=== PATIENT | male | born 1970 | race American Indian/Alaskan Native ===

== ENCOUNTER 2017-06-23 23:16 | Inpatient (IN) | payer OTHER ==
[2017-06-23] MEDS ORDERED: ASPIRIN PO ONE (23:55)
[2017-06-24 00:12] LABS: Basophils % (Auto) 0.1 % (0.0-1.8); Eosinophils % (Auto) 0.1 % (0.0-4.3); Hematocrit 46.8 % (35.5-45.6); Hemoglobin 15.8 gm/dl (11.8-15.2); Lymphocytes # (Auto) 2.5 K/mm3 (1.2-5.4); Lymphocytes % (Auto) 12.2 % (13.4-35.0); Mean Corpuscular HGB Conc 34 % (32-34); Mean Corpuscular Hemoglobin 30 pg (28-32); Mean Corpuscular Volume 87 fl (84-94); Monocytes # (Auto) 1.2 K/mm3 (0.0-0.8); Monocytes % (Auto) 5.9 % (0.0-7.3); Platelet Count 305 K/mm3 (140-440); Red Blood Count 5.37 M/mm3 (3.65-5.03); Red Cell Distribution Width 13.2 % (13.2-15.2)
[2017-06-24 00:25] LABS: Alanine Aminotransferase 35 units/L (7-56); Albumin 4.7 g/dL (3.9-5); BUN/Creatinine Ratio 9; Blood Urea Nitrogen 8 mg/dL (9-20); Calcium 9.7 mg/dL (8.4-10.2); Hemolysis Index 13
[2017-06-24 03:10] LABS: Bacteria,Urine 1+ /HPF (Negative); Bilirubin,Urine NEG (Negative); Blood,Urine NEG (Negative); Color,Urine Yellow (Yellow); Mucus,Urine 1+ /HPF; Protein,Urine <15 mg/dL mg/dL (Negative); Urobilinogen,Urine < 2.0 mg/dL (<2.0)
--- NOTE | 2017-06-24 04:39 | Cat Scan Report ---
FINAL REPORT EXAM: CT ABDOMEN PELVIS W CON HISTORY: gen abd pain, wbc 20 TECHNIQUE: Routine axial imaging was obtained of the abdomen and pelvis following the intravenous injection of 100 cc of Omnipaque 300. Delayed imaging was obtained through the kidneys ureters and bladder. Sagittal and coronal reconstructions were reviewed. FINDINGS: The lung bases are clear. Pleural fluid is not seen. The liver, gallbladder, biliary tree, and spleen appear normal. The pancreas is mildly atrophic. The adrenal glands appear normal. The kidneys reveal 1 cm cortical cyst posteriorly in the left kidney centrally. There is no evidence of stones or hydronephrosis. The vascular structures enhance normally. The abdominal aorta is normal in caliber. There is moderate distention of proximal small bowel loops with air-fluid levels suspicious for partial mechanical small bowel obstruction. The distal ileal loops are normal in caliber. The colon is normal in caliber and reveals numerous uncomplicated colonic diverticula. The appendix is not enlarged. There is no evidence of free fluid or adenopathy. In the pelvis the prostate gland and bladder appear normal. The skeletal structures do not show any acute changes. IMPRESSION: Partial mechanical small bowel obstruction. 1 cm cortical cyst in left kidney. No evidence of hydronephrosis. Normal appendix. Uncomplicated colonic diverticulosis.
[2017-06-24] MEDS ORDERED: K-DUR PO ONE (04:49)
--- NOTE | 2017-06-24 04:51 | Emergency Department Report ---
<ROGELIO CROOKS P - Last Filed: 06/24/17 08:26> ED Abdominal Pain HPI - General Chief Complaint: Abdominal Pain Stated Complaint: CHEST,STOMACH PAIN Time Seen by Provider: 06/24/17 03:20 - Related Data Home Medications Medication Instructions Recorded Confirmed Last Taken AtorvaSTATin 20 mg PO HS 06/24/17 06/24/17 06/23/17 Janumet 50-500 mg Tablet 1 tab PO HS 06/24/17 06/24/17 06/21/17 Lisinopril [Zestril] 40 mg PO DAILY 06/24/17 06/24/17 06/23/17 amLODIPine 10 mg PO DAILY 06/24/17 06/24/17 06/23/17 Allergies Allergy/AdvReac Type Severity Reaction Status Date / Time No Known Allergies Allergy Verified 06/24/17 03:20 ED Review of Systems ROS: Stated complaint: CHEST,STOMACH PAIN Other details as noted in HPI ED Past Medical Hx - Medications Home Medications: Home Medications Medication Instructions Recorded Confirmed Last Taken Type AtorvaSTATin 20 mg PO HS 06/24/17 06/24/17 06/23/17 History Janumet 50-500 mg Tablet 1 tab PO HS 06/24/17 06/24/17 06/21/17 History Lisinopril [Zestril] 40 mg PO DAILY 06/24/17 06/24/17 06/23/17 History amLODIPine 10 mg PO DAILY 06/24/17 06/24/17 06/23/17 History ED Course Vital Signs 06/23/17 06/23/17 06/24/17 23:16 23:51 03:46 Temperature 98.1 F 98.1 F Pulse Rate 98 H 96 H Respiratory 18 18 Rate Blood Pressure 140/87 140/87 O2 Sat by Pulse 97 96 99 Oximetry 06/24/17 06/24/17 06/24/17 04:00 04:30 05:00 Temperature Pulse Rate 105 H 101 H 102 H Respiratory 20 20 16 Rate Blood Pressure 145/82 138/87 144/87 O2 Sat by Pulse 98 100 98 Oximetry 06/24/17 06/24/17 06/24/17 05:30 06:00 06:21 Temperature 99.2 F Pulse Rate 97 H 97 H Respiratory 17 22 Rate Blood Pressure 137/84 143/83 O2 Sat by Pulse 97 98 Oximetry 06/24/17 06/24/17 06/24/17 06:30 07:00 07:30 Temperature Pulse Rate 102 H 97 H 116 H Respiratory 20 20 Rate Blood Pressure 144/90 149/89 149/89 O2 Sat by Pulse 99 98 Oximetry 06/24/17 06/24/17 06/24/17 08:00 08:05 08:30 Temperature Pulse Rate 103 H 101 H Respiratory 20 18 16 Rate Blood Pressure 132/82 145/82 O2 Sat by Pulse 98 98 99 Oximetry 06/24/17 06/24/17 06/24/17 09:00 09:30 10:00 Temperature Pulse Rate 93 H 94 H 92 H Respiratory 18 17 18 Rate Blood Pressure 133/81 136/85 128/78 O2 Sat by Pulse 98 97 98 Oximetry ED Medical Decision Making - Lab Data Result diagrams: 06/23/17 23:58 06/23/17 23:58 Critical care attestation.: If time is entered above; I have spent that time in minutes in the direct care of this critically ill patient, excluding procedure time. ED Disposition Clinical Impression: Abdominal pain, Dehydration, Acute hyperglycemia, Abdominal pain, acute, generalized, Lactic acidosis Disposition: OP ADMIT IP TO THIS HOSP Is pt being admited?: Yes Does the pt Need Aspirin: Yes Condition: Stable Time of Disposition: 08:33 <OLYA ZAMORA - Last Filed: 06/25/17 05:38> ED Abdominal Pain HPI - General Source: patient, family Mode of arrival: Ambulatory Limitations: No Limitations - History of Present Illness Initial Comments: 47-year-old male with a past medical history of diabetes and hypertension presents to the Hospital with complains of generalized 9/10 crampy abdominal pain. Pain radiated to the left chest. Patient denied any fever, nausea, vomiting, diarrhea, or shortness of breath. History of diverticulitis in the past. No previous abdominal surgeries. Pt is passing dot. Since waiting over 4 hours in the ED, pain that resolved and patient is asymptomatic. ED Review of Systems Comment: All other systems reviewed and negative ED Past Medical Hx - Past Medical History Previous Medical History?: Yes Hx Hypertension: Yes Hx Diabetes: Yes - Surgical History Past Surgical History?: No - Social History Smoking Status: Former Smoker Substance Use Type: None ED Physical Exam - General Limitations: No Limitations - Other Other exam information: General: No limitations, patient is alert in no acute distress Head exam: Atraumatic, normocephalic Eyes exam: Normal appearance, pupils equal reactive to light, extraocular movements intact ENT: Moist mucous membrane, normal oropharynx Neck exam: Normal inspection, full range of motion, no meningismus nontender Respiratory exam: Clear to auscultation bilateral, no wheezes, rales, crackles Cardiovascular: Normal rate and rhythm, normal heart sounds Abdomen: Soft, nondistended, and nontender, with normal bowel sounds, no rebound, or guarding Extremity: Full range of motion normal inspection no deformity Back: Normal Inspection, full range of motion, no tenderness Neurologic: Alert, oriented x3, cranial nerves intact, no motor or sensory deficit Psychiatric: normal affect, normal mood Skin: Warm, dry, intact ED Course - Reevaluation(s) Reevaluation #1: 06/24/17 05:42 His resting heart rate fluctuates between 97 and 108. Patient continues to be asymptomatic without pain or distress. Tolerated fluids. Will be provided snacks as well. This was rediscussed with Dr. Milner localizes for hydration , reassessment, M.D. see if symptoms remain improves and heart rate improves. Reevaluation #2: 06/24/17 05:52 pt states he feels bloated like he has to pass gas. Maalox with simethocone ordered to see if has relief. tolerated crackers without difficulty. Remains pain free - Consultations Consultation #1: 06/24/17 04:[address] Milner (gen surgeon). This patient is asymptomatic and symptoms have improved he suggest that this may be secondary to ileus or gastroenteritis or viral illness. If the patient is asymptomatic and tolerating by mouth may be discharged with very close follow-up. ED Medical Decision Making - Lab Data Result diagrams: 06/24/17 15:51 06/24/17 15:51 Lab Results 06/23/17 06/23/17 06/24/17 Range/Units 23:58 23:58 02:36 WBC 20.1 H (4.5-11.0) K/mm3 RBC 5.37 H (3.65-5.03) M/mm3 Hgb 15.8 H (11.8-15.2) gm/dl Hct 46.8 H (35.5-45.6) % MCV 87 (84-94) fl MCH 30 (28-32) pg MCHC 34 (32-34) % RDW 13.2 (13.2-15.2) % Plt Count 305 (140-440) K/mm3 Lymph % (Auto) 12.2 L (13.4-35.0) % [place] % (Auto) 5.9 (0.0-7.3) % Eos % (Auto) 0.1 (0.0-4.3) % Baso % (Auto) 0.1 (0.0-1.8) % Lymph # 2.5 (1.2-5.4) K/mm3 [place] # 1.2 H (0.0-0.8) K/mm3 Eos # 0.0 (0.0-0.4) K/mm3 Baso # 0.0 (0.0-0.1) K/mm3 Seg Neutrophils % 81.7 H (40.0-70.0) % Seg Neutrophils # 16.4 H (1.8-7.7) K/mm3 Sodium 139 (137-145) mmol/L Potassium 3.4 L (3.6-5.0) mmol/L Chloride 97.0 L (98-107) mmol/L Carbon Dioxide 25 (22-30) mmol/L Anion Gap 20 mmol/L BUN 8 L (9-20) mg/dL Creatinine 0.9 (0.8-1.5) mg/dL Estimated GFR > 60 ml/min BUN/Creatinine Ratio 9 % Glucose 195 H (75-100) mg/dL Calcium 9.7 (8.4-10.2) mg/dL Total Bilirubin 0.60 (0.1-1.2) mg/dL AST 20 (5-40) units/L ALT 35 (7-56) units/L Alkaline Phosphatase 89 (35-129) units/L Troponin T < 0.010 (0.00-0.029) ng/mL Total Protein 7.3 (6.3-8.2) g/dL Albumin 4.7 (3.9-5) g/dL Albumin/Globulin Ratio 1.8 % Urine Color Yellow (Yellow) Urine Turbidity Clear (Clear) Urine pH 5.0 (5.0-7.0) Ur Specific [place] 1.020 (1.003-1.030) Urine Protein <15 mg/dl (Negative) mg/dL Urine Glucose (UA) Neg (Negative) mg/dL Urine Ketones Tr (Negative) mg/dL Urine Blood Neg (Negative) Urine Nitrite Neg (Negative) Urine Bilirubin Neg (Negative) Urine Urobilinogen < 2.0 (<2.0) mg/dL Ur Leukocyte Esterase Neg (Negative) Urine WBC (Auto) 1.0 (0.0-6.0) /HPF Urine RBC (Auto) 3.0 (0.0-6.0) /HPF Urine Bacteria (Auto) 1+ (Negative) /HPF Urine Mucus 1+ /HPF 06/24/17 Range/Units 03:01 WBC (4.5-11.0) K/mm3 RBC (3.65-5.03) M/mm3 Hgb (11.8-15.2) gm/dl Hct (35.5-45.6) % MCV (84-94) fl MCH (28-32) pg MCHC (32-34) % RDW (13.2-15.2) % Plt Count (140-440) K/mm3 Lymph % (Auto) (13.4-35.0) % [place] % (Auto) (0.0-7.3) % Eos % (Auto) (0.0-4.3) % Baso % (Auto) (0.0-1.8) % Lymph # (1.2-5.4) K/mm3 [place] # (0.0-0.8) K/mm3 Eos # (0.0-0.4) K/mm3 Baso # (0.0-0.1) K/mm3 Seg Neutrophils % (40.0-70.0) % Seg Neutrophils # (1.8-7.7) K/mm3 Sodium (137-145) mmol/L Potassium (3.6-5.0) mmol/L Chloride (98-107) mmol/L Carbon Dioxide (22-30) mmol/L Anion Gap mmol/L BUN (9-20) mg/dL Creatinine (0.8-1.5) mg/dL Estimated GFR ml/min BUN/Creatinine Ratio % Glucose (75-100) mg/dL Calcium (8.4-10.2) mg/dL Total Bilirubin (0.1-1.2) mg/dL AST (5-40) units/L ALT (7-56) units/L Alkaline Phosphatase (35-129) units/L Troponin T < 0.010 (0.00-0.029) ng/mL Total Protein (6.3-8.2) g/dL Albumin (3.9-5) g/dL Albumin/Globulin Ratio % Urine Color (Yellow) Urine Turbidity (Clear) Urine pH (5.0-7.0) Ur Specific [place] (1.003-1.030) Urine Protein (Negative) mg/dL Urine Glucose (UA) (Negative) mg/dL Urine Ketones (Negative) mg/dL Urine Blood (Negative) Urine Nitrite (Negative) Urine Bilirubin (Negative) Urine Urobilinogen (<2.0) mg/dL Ur Leukocyte Esterase (Negative) Urine WBC (Auto) (0.0-6.0) /HPF Urine RBC (Auto) (0.0-6.0) /HPF Urine Bacteria (Auto) (Negative) /HPF Urine Mucus /HPF - EKG Data -: EKG Interpreted by Ma EKG shows normal: sinus rhythm, axis (qrs -37), QRS complexes (qrsd 83), ST-T waves (no stemi/t inv) Rate: normal (97) - EKG Data When compared to previous EKG there are: previous EKG unavailable - Radiology Data Radiology results: report reviewed CT abdomen and pelvis IV contrast suspicious for partial small bowel obstruction. Normal appendix. Uncomplicated colonic diverticulosis. 1 cm cortical cyst in the left kidney. - Medical Decision Making despite CT findings patient is not presenting like a partial small bowel obstruction. He is completely asymptomatic. Tolerating fluids. Leukocytosis likely secondary to stress reaction. There are no inflammatory findings in the intestines and urine does not show infection. Patient found out to oncoming physician Dr. Crooks VSS vital signs after 1 L. If heart rate remains above 100 give a second liter of NS If heart rate not improved after 2nd liter, call Dr milner and consider admission to hospitalist If pt redevelops sx or can not tolerate solid food intake then admit to hospital critera for d/c hr less than 100 asymptomatic tolerating po Pt informed of plan pt prepped for d/c assuming he meets above criteria - Differential Diagnosis appendicitis, diverticulitis, gastroenteritis, food poisoning,cholecystitis Critical Care Time: No ED Disposition Is pt being admited?: Yes Does the pt Need Aspirin: No
[2017-06-24] MEDS ORDERED: NACL 0.9% 1000 ML 1,000 ML IV ONE ×4 (05:12→08:25)
[2017-06-24] MEDS ORDERED: ALUM-MAG HYDROX-SIMETH 200-200-20MG/5ML PO ONE (05:51)
[2017-06-24] MEDS ORDERED: SUBLIMAZE IV ONE (08:32)
[2017-06-24] MEDS ORDERED: BABY ASPIRIN PO ONE (08:33)
[2017-06-24] MEDS: ZOSYN/NS 3.375GM/50ML 3.375 GM/50 ML BAG IV SCH ×4 (09:41→23:07)
[2017-06-24] MEDS ORDERED: SUBLIMAZE ONE (10:06)
--- NOTE | 2017-06-24 11:24 | History and Physical Report ---
History of Present Illness Date of examination: 06/24/17 Date of admission: 06/24/17 08:34 Chief complaint: Abdominal pain History of present illness: 47-year-old -Armenian male with past medical history significant for diabetes mellitus, hypertension, hyperlipidemia, diverticulitis presented to the emergency department with complaints of abdominal pain that started yesterday around 4 PM. Pain started in the mid abdomen and later generalized, 9 out of 10 in intensity, crampy, with no relieving or aggravating factors. Patient had 2 bowel movements this morning. Patient denied nausea, vomiting, fever, chills. REVIEW OF SYSTEMS: GENERAL: no weight change, no fatigue, no fever HEAD: no head ache EYES: no blurry vision, no acute visual loss EARS: no hearing loss, no discharge, no earache NOSE: no stuffiness, no sneezing, no discharge MOUTH, THROAT AND NECK: no bleeding gums, no sore throat, no swollen neck CARDIAC: no palpitations, no dyspnea on exertion, no orthopnea, no PND, no edema , no chest pain RESPIRATORY: no shortness of breath, no wheeze, no cough, no sputum, no hemoptysis, no asthma GI: As stated in the HPI. URINARY: no change in frequency, no urgency, no polyuria, no hematuria, no incontinence MUSCULOSKELETAL: no muscle weakness, no pain, no joint stiffness NEUROLOGIC: no loss of sensation/numbness, no tingling, no tremors, no weakness/ paralysis HEMATOLOGIC: no anemia, no easy bruising SKIN: no rashes ENDOCRINE: no heat/cold intolerance, no polyuria, no polydipsia, no thyroid problems, + diabetes PSYCHIATRIC: no anxiety, no depression, no suicidal ideations Past History Past Medical History: diabetes, hypertension, hyperlipidemia Past Surgical History: No surgical history Social history: full code. denies: smoking, alcohol abuse, prescription drug abuse, IV drug use Family history: CAD (Father) Medications and Allergies Allergies Allergy/AdvReac Type Severity Reaction Status Date / Time No Known Allergies Allergy Verified 06/24/17 03:20 Home Medications Medication Instructions Recorded Confirmed Last Taken Type AtorvaSTATin 20 mg PO HS 06/24/17 06/24/17 06/23/17 History Janumet 50-500 mg Tablet 1 tab PO HS 06/24/17 06/24/17 06/21/17 History Lisinopril [Zestril] 40 mg PO DAILY 06/24/17 06/24/17 06/23/17 History amLODIPine 10 mg PO DAILY 06/24/17 06/24/17 06/23/17 History Active Meds: Active Medications Piperacillin Sod/Tazobactam Sod (Zosyn/Ns 3.375gm/50ml) 3.375 gm in 50 mls @ 100 mls/hr IV Q6HR KRISTIN Last Admin: 06/24/17 09:41 Dose: 100 mls/hr Exam - Physical Exam Narrative exam: Not in cardiopulmonary distress. The patient is obese. Vital signs as documented. Head exam is unremarkable. No scleral icterus . Neck is without jugular venous distension, thyromegaly, or carotid bruits. Lungs are clear to auscultation. Cardiac exam reveals regular rate and Rhythm. First and second heart sounds normal. No murmurs, rubs or gallops. Abdominal exam reveals normal bowel sounds, no masses, no organomegaly and no aortic enlargement. Extremities are nonedematous and both femoral and pedal pulses are normal. [employer]ER: Alert and oriented 3. No focal weakness. - Constitutional Vitals: Temp Pulse Resp BP Pulse Ox 99.2 F 91 H 16 125/74 98 06/24/17 06:21 06/24/17 10:30 06/24/17 10:30 06/24/17 10:30 06/24/17 10:30 Results - Labs CBC & Chem 7: 06/23/17 23:58 06/23/17 23:58 Labs: Laboratory Last Values WBC 20.1 K/mm3 (4.5-11.0) H 06/23/17 23:58 RBC 5.37 M/mm3 (3.65-5.03) H 06/23/17 23:58 Hgb 15.8 gm/dl (11.8-15.2) H 06/23/17 23:58 Hct 46.8 % (35.5-45.6) H 06/23/17 23:58 MCV 87 fl (84-94) 06/23/17 23:58 MCH 30 pg (28-32) 06/23/17 23:58 MCHC 34 % (32-34) 06/23/17 23:58 RDW 13.2 % (13.2-15.2) 06/23/17 23:58 Plt Count 305 K/mm3 (140-440) 06/23/17 23:58 Lymph % (Auto) 12.2 % (13.4-35.0) L 06/23/17 23:58 [place] % (Auto) 5.9 % (0.0-7.3) 06/23/17 23:58 Eos % (Auto) 0.1 % (0.0-4.3) 06/23/17 23:58 Baso % (Auto) 0.1 % (0.0-1.8) 06/23/17 23:58 Lymph # 2.5 K/mm3 (1.2-5.4) 06/23/17 23:58 [place] # 1.2 K/mm3 (0.0-0.8) H 06/23/17 23:58 Eos # 0.0 K/mm3 (0.0-0.4) 06/23/17 23:58 Baso # 0.0 K/mm3 (0.0-0.1) 06/23/17 23:58 Seg Neutrophils % 81.7 % (40.0-70.0) H 06/23/17 23:58 Seg Neutrophils # 16.4 K/mm3 (1.8-7.7) H 06/23/17 23:58 Sodium 139 mmol/L (137-145) 06/23/17 23:58 Potassium 3.4 mmol/L (3.6-5.0) L 06/23/17 23:58 Chloride 97.0 mmol/L (98-107) L 06/23/17 23:58 Carbon Dioxide 25 mmol/L (22-30) 06/23/17 23:58 Anion Gap 20 mmol/L 06/23/17 23:58 BUN 8 mg/dL (9-20) L 06/23/17 23:58 Creatinine 0.9 mg/dL (0.8-1.5) 06/23/17 23:58 Estimated GFR > 60 ml/min 06/23/17 23:58 BUN/Creatinine Ratio 9 % 06/23/17 23:58 Glucose 195 mg/dL (75-100) H 06/23/17 23:58 Lactic Acid 2.40 mmol/L (0.7-2.0) H* 05/13/18 06:50 Calcium 9.7 mg/dL (8.4-10.2) 06/23/17 23:58 Total Bilirubin 0.60 mg/dL (0.1-1.2) 06/23/17 23:58 AST 20 units/L (5-40) 06/23/17 23:58 ALT 35 units/L (7-56) 06/23/17 23:58 Alkaline Phosphatase 89 units/L (35-129) 06/23/17 23:58 Troponin T < 0.010 ng/mL (0.00-0.029) 06/24/17 03:01 NT-Pro-B Natriuret Pep 5.30 pg/mL (0-450) 06/24/17 06:50 Total Protein 7.3 g/dL (6.3-8.2) 06/23/17 23:58 Albumin 4.7 g/dL (3.9-5) 06/23/17 23:58 Albumin/Globulin Ratio 1.8 % 06/23/17 23:58 Urine Color Yellow (Yellow) 06/24/17 02:36 Urine Turbidity Clear (Clear) 06/24/17 02:36 Urine pH 5.0 (5.0-7.0) 06/24/17 02:36 Ur Specific [place] 1.020 (1.003-1.030) 06/24/17 02:36 Urine Protein <15 mg/dl mg/dL (Negative) 06/24/17 02:36 Urine Glucose (UA) Neg mg/dL (Negative) 06/24/17 02:36 Urine Ketones Tr mg/dL (Negative) 06/24/17 02:36 Urine Blood Neg (Negative) 06/24/17 02:36 Urine Nitrite Neg (Negative) 06/24/17 02:36 Urine Bilirubin Neg (Negative) 06/24/17 02:36 Urine Urobilinogen < 2.0 mg/dL (<2.0) 06/24/17 02:36 Ur Leukocyte Esterase Neg (Negative) 06/24/17 02:36 Urine WBC (Auto) 1.0 /HPF (0.0-6.0) 06/24/17 02:36 Urine RBC (Auto) 3.0 /HPF (0.0-6.0) 06/24/17 02:36 Urine Bacteria (Auto) 1+ /HPF (Negative) 06/24/17 02:36 Urine Mucus 1+ /HPF 06/24/17 02:36 Assessment and Plan Assessment and plan: 47-year-old -Armenian male with past medical history significant for hypertension, diabetes mellitus, diverticulitis, hyperlipidemia presented to the emergency department with complaints of abdominal pain that started yesterday around [address] of the abdomen was done in the emergency Department and showed partial small bowel obstruction. Partial small bowel obstruction - Gen. surgery was consulted, and recommended admit and start him was on IV fluids - Patient had a bowel movement this morning likely is a partial small bowel obstruction has resolved Sepsis: Evidence by elevated lactic acid, tachycardia, leukocytosis - Patient is on IV antibiotics, IV fluids, follow blood cultures Diabetes mellitus his hyperglycemia - sliding scale insulin DVT prophylaxis - Mechanical because the patient is ambulatory and in case he need surgery Disposition -Admitted to the medical floor Advance Directives: Yes VTE prophylaxis?: Mechanical Reason for no VTE Prophylaxis: Surgical contraindication Plan of care discussed with patient/family: Yes
[2017-06-24] MEDS ORDERED: D50W (25GM) Syringe IV PRN (11:26)
[2017-06-24] MEDS ORDERED: MORPHINE IV PRN (11:46)
[2017-06-24] MEDS: HumaLOG SUB-Q SCH ×3 (12:16→21:48)
--- NOTE | 2017-06-24 12:18 | Consultation ---
History of Present Illness Consult date: 06/24/17 Reason for consult: other (PSBO) Requesting physician: LUIS ENRIQUE BARRAGAN Chief complaint: abdominal pain - History of present illness History of present illness: 47-year-old male presented to the emergency department last night after suffering acute onset of abdominal pain at 4 PM yesterday. Patient reports that he was out during the day in the hot weather. There have been some sick contacts at work. He himself does not feel as though he has developed any cold or flu symptoms. While waiting in emergency department's pain completely resolved. However, his CT scan suggested a partial small bowel obstruction and his WBC was elevated. He has had 2 bowel movements. He is passing gas. His pain is completely resolved. He is hungry and thirsty. Past History Past Medical History: diabetes, hypertension, hyperlipidemia. denies: acute [place] Past Surgical History: hernia repair ([facility]) Social history: , lives with family, other (works as a delivery of shopping news). denies: smoking, alcohol abuse Family history: no significant family history Medications and Allergies Allergies Allergy/AdvReac Type Severity Reaction Status Date / Time No Known Allergies Allergy Verified 06/24/17 03:20 Home Medications Medication Instructions Recorded Confirmed Last Taken Type AtorvaSTATin 20 mg PO HS 06/24/17 06/24/17 06/23/17 History Janumet 50-500 mg Tablet 1 tab PO HS 06/24/17 06/24/17 06/21/17 History Lisinopril [Zestril] 40 mg PO DAILY 06/24/17 06/24/17 06/23/17 History amLODIPine 10 mg PO DAILY 06/24/17 06/24/17 06/23/17 History Active Meds: Active Medications Dextrose (D50w (25gm) Syringe) 50 ml IV PRN PRN PRN Reason: Hypoglycemia Piperacillin Sod/Tazobactam Sod (Zosyn/Ns 3.375gm/50ml) 3.375 gm in 50 mls @ 100 mls/hr IV Q6HR KRISTIN Last Admin: 06/24/17 09:41 Dose: 100 mls/hr Sodium Chloride (Nacl 0.9% 1000 Ml) 1,000 mls @ 100 mls/hr IV DIRECT KRISTIN Insulin Human Lispro (Humalog) 0 unit SUB-Q ACHS KRISTIN; Protocol Morphine Sulfate (Morphine) 2 mg IV Q3H PRN PRN Reason: Pain, Moderate (4-6) Review of Systems - Constitutional no weight loss, no fever, no chills, no chronic pain - EENT Ears, nose, mouth and throat: no nose pain, no nasal congestion, no nasal discharge, no sinus pressure, no sore throat - Cardiovascular no chest pain - Respiratory no cough, no cough with sputum, no shortness of breath - Gastrointestinal abdominal pain (had last night. Has resolved. ), no nausea, no vomiting, no diarrhea, no constipation, no change in bowel habits, no hematemesis, no coffee ground emesis, no BRBPR, no melena, no hematochezia, no dyspepsia/bloating - Genitourinary no dysuria - Integumentary no rash, no wounds Exam Vital Signs Temp Pulse Resp BP Pulse Ox 98.1 F 98 H 18 140/87 97 06/23/17 23:16 06/23/17 23:16 06/23/17 23:16 06/23/17 23:16 06/23/17 23:16 - General physical appearance Positive: well developed, well nourished, no distress, no pain - Eyes Positive: normal occular movement - ENT Positive: normal mucosa - Neck Positive: trachea midline - Respiratory Positive: normal expansion, normal respiratory effort, clear to auscultation - Cardiovascular Rhythm: regular - Extremities Extremities: normal temperature, normal color - Abdomen Abdomen: Present: soft, bowel sounds hypoactive (slight fluid filled sounds and slightly high pitched at times. ). Absent: tender, distended, guarding, rigid, wound, surgical scars Hernia: none - Integumentary no rash, no growths, no abnormal pigmentation - Neurologic Neurologic: alert and oriented to time, place and person, motor strength and sensation are grossly intact - Psychiatric Psychiatric: appropriate mood/affect, intact judgment & insight, memory intact, cooperative Results - Labs 06/23/17 23:58 06/23/17 23:58 Abnormal lab results 06/23/17 06/23/17 06/24/17 Range/Units 23:58 23:58 06:50 WBC 20.1 H (4.5-11.0) K/mm3 RBC 5.37 H (3.65-5.03) M/mm3 Hgb 15.8 H (11.8-15.2) gm/dl Hct 46.8 H (35.5-45.6) % Lymph % (Auto) 12.2 L (13.4-35.0) % [place] # 1.2 H (0.0-0.8) K/mm3 Seg Neutrophils % 81.7 H (40.0-70.0) % Seg Neutrophils # 16.4 H (1.8-7.7) K/mm3 Potassium 3.4 L (3.6-5.0) mmol/L Chloride 97.0 L (98-107) mmol/L BUN 8 L (9-20) mg/dL Glucose 195 H (75-100) mg/dL POC Glucose (70-105) Lactic Acid 2.40 H* (0.7-2.0) mmol/L 06/24/17 Range/Units 11:59 WBC (4.5-11.0) K/mm3 RBC (3.65-5.03) M/mm3 Hgb (11.8-15.2) gm/dl Hct (35.5-45.6) % Lymph % (Auto) (13.4-35.0) % [place] # (0.0-0.8) K/mm3 Seg Neutrophils % (40.0-70.0) % Seg Neutrophils # (1.8-7.7) K/mm3 Potassium (3.6-5.0) mmol/L Chloride (98-107) mmol/L BUN (9-20) mg/dL Glucose (75-100) mg/dL POC Glucose 124 H (70-105) Lactic Acid (0.7-2.0) mmol/L Diabetes panel 06/23/17 Range/Units 23:58 Sodium 139 (137-145) mmol/L Potassium 3.4 L (3.6-5.0) mmol/L Chloride 97.0 L (98-107) mmol/L Carbon Dioxide 25 (22-30) mmol/L BUN 8 L (9-20) mg/dL Creatinine 0.9 (0.8-1.5) mg/dL Glucose 195 H (75-100) mg/dL Calcium 9.7 (8.4-10.2) mg/dL AST 20 (5-40) units/L ALT 35 (7-56) units/L Alkaline Phosphatase 89 (35-129) units/L Total Protein 7.3 (6.3-8.2) g/dL Albumin 4.7 (3.9-5) g/dL Calcium panel 06/23/17 Range/Units 23:58 Calcium 9.7 (8.4-10.2) mg/dL Albumin 4.7 (3.9-5) g/dL Pituitary panel 06/23/17 Range/Units 23:58 Sodium 139 (137-145) mmol/L Potassium 3.4 L (3.6-5.0) mmol/L Chloride 97.0 L (98-107) mmol/L Carbon Dioxide 25 (22-30) mmol/L BUN 8 L (9-20) mg/dL Creatinine 0.9 (0.8-1.5) mg/dL Glucose 195 H (75-100) mg/dL Calcium 9.7 (8.4-10.2) mg/dL Adrenal panel 06/23/17 Range/Units 23:58 Sodium 139 (137-145) mmol/L Potassium 3.4 L (3.6-5.0) mmol/L Chloride 97.0 L (98-107) mmol/L Carbon Dioxide 25 (22-30) mmol/L BUN 8 L (9-20) mg/dL Creatinine 0.9 (0.8-1.5) mg/dL Glucose 195 H (75-100) mg/dL Calcium 9.7 (8.4-10.2) mg/dL Total Bilirubin 0.60 (0.1-1.2) mg/dL AST 20 (5-40) units/L ALT 35 (7-56) units/L Alkaline Phosphatase 89 (35-129) units/L Total Protein 7.3 (6.3-8.2) g/dL Albumin 4.7 (3.9-5) g/dL - Imaging CT scan - abdomen: report reviewed, image reviewed Assessment and Plan - Patient Problems (1) Abdominal pain, acute, generalized Current Visit: Yes Status: Acute Plan to address problem: Patient is stable. Pain has completely resolved. May have had a mild ileus or mild PSBO. Probably related to dehydration or mild viral exposure. Regardless, his bowel function's return to normal. Will advance to clear liquid diet. Recommended: 1) Recheck labs this evening or in AM. Once normal, may d/c home. 2) Advance diet as tolerated. Please call with any questions. Time=45min
[2017-06-24 16:12] LABS: BUN/Creatinine Ratio 9; Blood Urea Nitrogen 6 mg/dL (9-20); Calcium 8.4 mg/dL (8.4-10.2); Hemolysis Index 4
[2017-06-24 16:19] LABS: Basophils % (Auto) 0.1 % (0.0-1.8); Eosinophils % (Auto) 0.2 % (0.0-4.3); Hematocrit 41.5 % (35.5-45.6); Hemoglobin 14.2 gm/dl (11.8-15.2); Lymphocytes # (Auto) 1.6 K/mm3 (1.2-5.4); Lymphocytes % (Auto) 18.8 % (13.4-35.0); Mean Corpuscular HGB Conc 34 % (32-34); Mean Corpuscular Hemoglobin 30 pg (28-32); Mean Corpuscular Volume 86 fl (84-94); Mean Platelet Volume 7.5 fl (6-12); Monocytes # (Auto) 0.6 K/mm3 (0.0-0.8); Platelet Count 257 K/mm3 (140-440); Red Blood Count 4.82 M/mm3 (3.65-5.03); Red Cell Distribution Width 13.3 % (13.2-15.2)
[2017-06-24] MEDS: NACL 0.9% 1000 ML 1,000 ML IV SCH (21:57)
[2017-06-25] MEDS: ZOSYN/NS 3.375GM/50ML 3.375 GM/50 ML BAG IV SCH ×2 (05:29→14:22)
[2017-06-25] MEDS: HumaLOG SUB-Q SCH ×2 (09:09→14:21)
[2017-06-25] MEDS: NACL 0.9% 1000 ML 1,000 ML IV SCH (09:12)
--- NOTE | 2017-06-25 10:14 | Progress Note ---
Assessment and Plan Partial small bowel obstruction-resolved - Gen. surgery following, having BM and passing flatus. Sepsis: On IV antibiotics, blood cultures pending, will f/u. Diabetes mellitus his hyperglycemia: SSI. Hypertension: Optimize control with BP meds. HLD: On statin. DVT prophylaxis: SCDs Subjective Date of service: 06/25/17 Principal diagnosis: Partial small bowel obstruction Interval history: No longer having abdominal pain, having BM and passing flatus Objective - Constitutional Vitals: Vital Signs - 12hr 06/24/17 06/24/17 06/25/17 22:27 22:29 07:06 Temperature 99.0 F Pulse Rate 88 Respiratory 18 16 Rate Respiratory 18 Rate [Chest] Blood Pressure 130/88 O2 Sat by Pulse 98 Oximetry General appearance: Present: no acute distress, well-nourished - EENT Eyes: PERRL, EOM intact ENT: hearing intact, clear oral mucosa Ears: bilateral: normal - Neck Neck: supple, normal ROM - Respiratory Respiratory effort: normal Respiratory: bilateral: CTA - Breasts Breasts: deferred - Cardiovascular Rhythm: regular Heart Sounds: Present: S1 & S2. Absent: gallop, rub Extremities: pulses intact, No edema, normal color, Full ROM - Gastrointestinal General gastrointestinal: Present: soft, non-tender, non-distended, normal bowel sounds Rectal Exam: deferred - Genitourinary Male genitourinary: deferred - Integumentary Integumentary: clear, warm, dry - Musculoskeletal Musculoskeletal: strength equal bilaterally - Neurologic Neurologic: moves all extremities - Psychiatric Psychiatric: cooperative - Labs CBC & Chem 7: 06/24/17 15:51 06/24/17 15:51 Labs: Abnormal lab results 06/24/17 06/24/17 06/24/17 Range/Units 11:59 15:51 15:51 Seg Neutrophils % 73.9 H (40.0-70.0) % BUN 6 L (9-20) mg/dL Creatinine 0.7 L (0.8-1.5) mg/dL POC Glucose 124 H (70-105)
[2017-06-25 15:37] VITALS: BP 145/89
--- NOTE | 2017-06-25 16:17 | Progress Note ---
Assessment and Plan - Patient Problems (1) Abdominal pain, acute, generalized Current Visit: Yes Status: Acute Plan to address problem: Patient is stable. Pain has completely resolved. I will try to contact Dr. Castillo to see if the patient can be discharged today. Recommended: 1) Ok to d/c home today 2) Advance diet as tolerated. Please call with any questions. Time=10min Subjective Date of service: 06/25/17 Patient Reports: Positive: no new complaints, feels better, tolerating liquids well, flatus, bowel movement, afebrile. Negative: nausea, vomiting Objective Vital Signs - 12hr 06/25/17 06/25/17 07:06 15:32 Temperature 99.0 F 98.7 F Pulse Rate 88 70 Respiratory 16 18 Rate Blood Pressure 130/88 145/89 O2 Sat by Pulse 98 96 Oximetry - General physical appearance no distress, no pain - Eyes normal occular movement - Respiratory normal expansion, normal respiratory effort - Abdomen soft, not tender, not distended, not guarding, not rigid - Labs 06/24/17 15:51 06/24/17 15:51
--- NOTE | 2017-06-25 17:13 | Discharge Summary ---
Providers - Providers Date of Admission: 06/24/17 08:34 Date of discharge: 06/25/17 Attending physician: GILA WARD 06/24/17 11:26 Consult to Physician [CONS] Routine Comment: Consulting Provider: KENIA BORRERO Physician Instructions: Reason For Exam: Bowel obstruction Primary care physician: LEEROY TINOCO Hospitalization Reason for admission: Acute diverticulitis, DM Condition: Stable Pertinent studies: CT abdomen and pelvis - partial smll bowel obstruction but pt is clinically stable with no such evidence Procedures: none Hospital course: 47-year-old -[place] male with past medical history significant for diabetes mellitus, hypertension, hyperlipidemia, diverticulitis presented to the emergency department with complaints of abdominal pain that started yesterday around 4 PM. Pain started in the mid abdomen and later generalized, 9 out of 10 in intensity, crampy, with no relieving or aggravating factors. Patient had 2 bowel movements this morning. Patient denied nausea, vomiting, fever, chills. Disposition: TO HOME OR SELFCARE Time spent for discharge: 35 m ins Core Measure Documentation - Palliative Care Palliative Care/ Comfort Measures: Not Applicable - Core Measures Any of the following diagnoses?: none Exam - Constitutional Vitals: Temp Pulse Resp BP Pulse Ox 98.7 F 70 18 145/89 96 06/25/17 15:32 06/25/17 15:32 06/25/17 15:32 06/25/17 15:32 06/25/17 15:32 General appearance: Present: no acute distress, well-nourished - EENT Eyes: Present: PERRL - Neck Neck: Present: supple, normal ROM - Respiratory Respiratory effort: normal Respiratory: bilateral: CTA - Cardiovascular Heart Sounds: Present: S1 & S2. Absent: rub, click - Extremities Extremities: pulses symmetrical, No edema Peripheral Pulses: within normal limits - Abdominal General gastrointestinal: Present: soft, non-tender, non-distended, normal bowel sounds - Integumentary Integumentary: Present: clear, warm, dry - Musculoskeletal Musculoskeletal: gait normal, strength equal bilaterally - Psychiatric Psychiatric: appropriate mood/affect, intact judgment & insight - Neurologic Neurologic: CNII-XII intact, moves all extremities Plan Activity: advance as tolerated Weight Bearing Status: Non-Weight Bearing Diet: low cholesterol Follow up with: LEEROY TINOCO MD [Primary Care Provider] - 3-5 Days Prescriptions: amLODIPine 10 mg PO DAILY #30 AtorvaSTATin [Lipitor] 20 mg PO QHS #30 tablet AtorvaSTATin 20 mg PO HS #30 Janumet 50-500 mg Tablet 1 tab PO HS #30 Lispro Insulin [Humalog] 5 unit SUB-Q ACHS #300 units
== END 2017-06-25 17:50 | disposition home or self-care (01) | DRG 872 ==
LOC: ED 23:16 → 3A 06-24 08:34
PROVIDERS: ADMIT Internal Medicine; ATTEND Family Medicine
DX: A41.9 Sepsis, unspecified organism (principal); K56.600 Partial intestinal obstruction, unspecified as to cause; E86.0 Dehydration; E78.5 Hyperlipidemia, unspecified; E11.65 Type 2 diabetes mellitus with hyperglycemia; I10 Essential (primary) hypertension; Z82.49 Family history of ischemic heart disease and other diseases of the circulatory system; Z79.899 Other long term (current) drug therapy
CPT/HCPCS: 36415; 74177; 80048; 80053; 81001; 82140; 82962; 83880; 84484; 85025; 87040; 93005; 93010; 96360; 96361; A9270-GY; J1815; J2543; J3010; J7030; Q9967